=== PATIENT | male | born 1960 | race Caucasian/White ===

== ENCOUNTER 2016-08-20 14:36 | Emergency (ER) | payer SELFPAY ==
[2016-08-21] MEDS ORDERED: CIPR500T4 PO (17:41)
[2016-08-21] MEDS ORDERED: PHEN-640 PO (17:41)
[2016-08-21] MEDS ORDERED: ONDA8TAB13 PO (17:41)
[2016-08-21] MEDS ORDERED: OXYC-197 PO (17:41)
[2016-08-21] MEDS ORDERED: TAMS0.4C98 PO (17:41)
[2016-08-21] MEDS ORDERED: LEVOFLOXACIN 500 MG TAB (LEVAQUIN) ONE (18:14)
[2016-08-21] MEDS ORDERED: HYDROmorphone (DILAUDID) 2 MG/ML VIAL ONE (18:14)
[2016-08-21] MEDS ORDERED: NS IV 1000 ML 1,000 ML ONE (18:14)
[2016-08-21] MEDS ORDERED: ONDANSETRON 4 MG/2 ML (SDV) Z0FRAN ONE (18:14)
[2016-08-21] MEDS ORDERED: ALFUZOSIN HCL 10 MG TAB (UROXATRAL) PO ONE (18:15)
[2016-08-21] MEDS ORDERED: PHENAZOPYRIDINE 100 MG (PYRIDIUM) TABLET ONE (18:15)
[2016-08-21] MEDS ORDERED: HYDR-3812 PO (19:18)
[2016-08-21] MEDS ORDERED: FINA5TAB6 PO (19:18)
== END 2016-08-20 15:35 | disposition left against medical advice (07) ==
LOC: EDUNIT# 14:36 → ER 14:37
DX: R10.32 Left lower quadrant pain (principal); Z53.21 Procedure and treatment not carried out due to patient leaving prior to being seen by health care provider

== ENCOUNTER 2016-08-21 15:37 | Emergency (ER) | payer OTHER ==
[~2016-08-21] VITALS: Ht 182.9 cm; Wt 68.0 kg
[2016-08-21] MEDS ORDERED: NS IV 1000 ML 1,000 ML IV ONE ×2 (16:16→17:48)
[2016-08-21] MEDS ORDERED: KETOROLAC 30 MG/ML VIAL IVP STA (16:16)
[2016-08-21 16:21] LABS: BASOPHILS # (AUTO) 0.1 10^3/uL (0.0-0.1); BASOPHILS % (AUTO) 1 % (0-10); EOSINOPHILS # (AUTO) 0.2 10^3/uL (0.0-0.3); EOSINOPHILS % (AUTO) 2 % (0-10); LYMPHOCYTES # (AUTO) 3.9 X 10^3 (1.0-4.0); LYMPHOCYTES % (AUTO) 34 % (12-44); MEAN CORPUSCULAR HEMOGLOBIN 32 PG (25-34); MEAN CORPUSCULAR HGB CONC 35 G/DL (32-36); MEAN CORPUSCULAR VOLUME 91 FL (80-99); MONOCYTES # (AUTO) 1.3 X 10^3 (0.0-1.0); MONOCYTES % (AUTO) 11 % (0-12); NEUTROPHILS # (AUTO) 6.2 X 10^3 (1.8-7.8); NEUTROPHILS % (AUTO) 53 % (42-75); PLATELET COUNT 358 10^3/uL (130-400); RED BLOOD COUNT 4.79 10^6/uL (4.35-5.85); RED CELL DISTRIBUTION WIDTH 13.5 % (10.0-14.5); WHITE BLOOD COUNT 11.7 10^3/uL (4.3-11.0)
[2016-08-21] MEDS ORDERED: ONDANSETRON 4 MG/2 ML (SDV) Z0FRAN IVP ONE ×2 (16:30→18:00)
[2016-08-21 16:40] LABS: ALANINE AMINOTRANSFERASE 21 U/L (0-55); ALBUMIN 4.5 G/DL (3.2-4.5); ANION GAP 13 MMOL/L (5-14); ASPARTATE AMINO TRANSFERASE 16 U/L (5-34); BILIRUBIN,TOTAL 0.6 MG/DL (0.1-1.0); BLOOD UREA NITROGEN 15 MG/DL (7-18); BUN/CREATININE RATIO 14; CALCIUM 9.5 MG/DL (8.5-10.1); CARBON DIOXIDE 21 MMOL/L (21-32); CHLORIDE 105 MMOL/L (98-107); CREATININE SERUM 1.08 MG/DL (0.60-1.30); GFR ESTIMATED > 60; GLUCOSE 115 MG/DL (70-105); LIPASE 22 U/L (8-78); POTASSIUM 3.6 MMOL/L (3.6-5.0); SODIUM 139 MMOL/L (135-145); TOTAL PROTEIN 7.4 G/DL (6.4-8.2)
--- NOTE | 2016-08-21 17:14 | Diagnostic Imaging Report ---
INDICATION: Left side abdominal pain with nausea and vomiting for two days. FINDINGS: There is a small hiatal hernia. Asymmetric thickening of the GE junction cannot be excluded. Lung bases are clear. A 2 mm calculi is present in the left ureterovesical junction with mild to moderate left hydronephrosis and edema in the left kidney. No calculi are seen within the kidney, itself. Right kidney is normal. The liver, gallbladder, spleen, pancreas and adrenal glands are normal. There is a normal appearance of the appendix. There are a few diverticula without inflammation. Bilateral inguinal hernias are present. The left inguinal hernia contains a loop of bowel without inflammation or obstruction. The osseous structures demonstrate some degenerative changes of the lumbar spine. IMPRESSION: 1. There is a 2 mm obstructing calculus in the left ureterovesical junction with mild left-sided hydronephrosis and edema in the left kidney. 2. Bilateral inguinal hernias are present. The left lung contains a loop of bowel without obstruction or inflammation. 3. There is a small hiatal hernia. This area demonstrates some asymmetric thickening. This could be due to collapse of the hiatal hernia. A mass cannot be excluded, recommend elective endoscopy. Dictated by: Dictated on workstation # [id number]
--- NOTE | 2016-08-21 17:33 | ED GU-Male ---
General Chief Complaint: Abdominal/GI Problems Stated Complaint: L SIDE LOWER BACK AND ABD PAIN/CHILLS Nursing Triage Note: PT C/O LEFT FLANK PAIN STARTING YESTERDAY AFTERNOON. ALSO C/O N/V Source: patient, family Exam Limitations: no limitations History of Present Illness Time seen by provider: 17:33 Initial Comments 56-year-old male patient presents to the emergency department complains of left flank pain beginning yesterday. Does complain of nausea and vomiting. Denies fevers. Difficulty with urination today. Denies hematuria. Timing/Duration: yesterday, getting worse, intermittent Severity/Quality: aching, sharp Location: left flank Radiation: other (radiates into the left back) Activities at Onset: none Prior Genitourinary Problems: none Modifying Factors: Worsens With Palpation, Worsens With Urinating Allergies and Home Medications Allergies Coded Allergies: No Known Drug Allergies (Unverified , 08/21/16) Home Medications Ciprofloxacin HCl 500 Mg Tablet #14 500 MG PO BID Prescribed by: GEORGE SOTOMAYOR on 08/21/161740 Finasteride 5 Mg Tablet #10 5 MG PO DAILY Prescribed by: GEORGE SOTOMAYOR on 08/21/161917 Hydrocodone/Acetaminophen 1 Each Tablet #20 1 EACH PO Q4H PRN PRN PAIN Prescribed by: GEORGE SOTOMAYOR on 08/21/161917 Ondansetron 8 Mg Tab.rapdis #10 8 MG PO Q6H PRN PRN NAUSEA/VOMITING Prescribed by: GEORGE SOTOMAYOR on 08/21/161740 Phenazopyridine HCl 200 Mg Tablet #30 1 TAB PO Q8H PRN PRN PAIN Prescribed by: GEORGE SOTOMAYOR on 08/21/161740 Constitutional: No chills, No fever, No malaise Respiratory: No cough, No short of breath Cardiovascular: No chest pain, No palpitations, No syncope Gastrointestinal: abdominal pain (left flank pain)No constipation, No diarrhea , No hematemesis, loss of appetiteNo melena, nausea vomiting Genitourinary: see HPIdenies discharge, dysuriadenies frequency, flank paindenies hematuria, pain Musculoskeletal: see HPI back pain Skin: no symptoms reported Psychiatric/Neurological: No Symptoms Reported All Other Systemes Reviewed Negative Unless Noted: Yes (Negative excepted noted.) Past Ymbdcgg-Ppeoct-Byslub Hx Patient Social History Alcohol Use: Denies Use Recreational Drug Use: No Smoking Status: Never a Smoker Recent Foreign Travel: No Contact w/Someone Who Travel: No Recent Infectious Disease Expo: No Recent Hopitalizations: No Seasonal Allergies Seasonal Allergies: No Surgeries HX Surgeries: No Respiratory Hx Respiratory Disorders: No Cardiovascular Hx Cardiac Disorders: No Neurological Hx Neurological Disorders: No Reproductive System Hx Reproductive Disorders: No Genitourinary Hx Genitourinary Disorders: No Gastrointestinal Hx Gastrointestinal Disorders: No Musculoskeletal Hx Musculoskeletal Disorders: Yes Musculoskeletal Disorders: Chronic Back Pain Endocrine Hx Endocrine Disorders: No HEENT HX ENT Disorders: No Cancer Hx Cancer: No Psychosocial Hx Psychiatric Problems: No Integumentary HX Skin/Integumentary Disorder: No Blood Transfusions Hx Blood Disorders: No Reviewed Nursing Assessment Reviewed/Agree w Nursing PMH: Yes Family Medical History Significant Family History: No Pertinent Family Hx Physical Exam Vital Signs Vital Sign - Last 12Hours 08/21/16 08/21/16 15:48 19:51 Temp 95.7 Pulse 80 Resp 24 B/P 145/98 Pulse Ox 95 Capillary Refill : Less Than 3 Seconds General Appearance: WD/WN moderate distress HEENT: PERRL/EOMI pharynx normal Neck: supple normal inspection Cardiovascular: normal peripheral pulses regular rate, rhythm no edema no murmur Respiratory: lungs clear normal breath sounds no respiratory distress Gastrointestinal: normal bowel sounds soft no organomegalyNo distended, guarding (suprapubic, left lower quadrant, and left flank)No rebound, tenderness (suprapubic, left lower quadrant, and left flank) hernia (reducible bilateral inguinal hernias. Nontender.) Back: normal inspectionNo CVA tenderness (R), CVA tenderness (L) Extremities: no pedal edema normal capillary refill Neurologic/Psychiatric: alert oriented x 3 other (anxious) Skin: normal color warm/dry Progress/Results/Core Measures Results/Orders Lab Results Laboratory Tests Test 08/21/16 15:58 08/21/16 19:00 Range/Units Alanine Aminotransferase (ALT/SGPT) 21 0-55 U/L Albumin 4.5 3.2-4.5 G/DL Alkaline Phosphatase 62 40-136 U/L Anion Gap 13 5-14 MMOL/L Aspartate Amino Transf (AST/SGOT) 16 5-34 U/L BUN/Creatinine Ratio 14 Basophils # (Auto) 0.1 0.0-0.1 10^3/uL Basophils (%) (Auto) 1 0-10 % Blood Urea Nitrogen 15 7-18 MG/DL Calcium Level 9.5 8.5-10.1 MG/DL Carbon Dioxide Level 21 21-32 MMOL/L Chloride Level 105 98-107 MMOL/L Creatinine 1.08 0.60-1.30 MG/DL Eosinophils # (Auto) 0.2 0.0-0.3 10^3/uL Eosinophils (%) (Auto) 2 0-10 % Estimat Glomerular Filtration Rate > 60 Glucose Level 115 H 70-105 MG/DL Hematocrit 43 40-54 % Hemoglobin 15.2 13.3-17.7 G/DL Lipase 22 8-78 U/L Lymphocytes # (Auto) 3.9 1.0-4.0 X 10^3 Lymphocytes (%) (Auto) 34 12-44 % Mean Corpuscular Hemoglobin 32 25-34 PG Mean Corpuscular Hemoglobin Concent 35 32-36 G/DL Mean Corpuscular Volume 91 80-99 FL Mean Platelet Volume 10.0 7.4-10.4 FL Monocytes # (Auto) 1.3 H 0.0-1.0 X 10^3 Monocytes (%) (Auto) 11 0-12 % Neutrophils # (Auto) 6.2 1.8-7.8 X 10^3 Neutrophils (%) (Auto) 53 42-75 % Platelet Count 358 130-400 10^3/uL Potassium Level 3.6 3.6-5.0 MMOL/L Red Blood Count 4.79 4.35-5.85 10^6/uL Red Cell Distribution Width 13.5 10.0-14.5 % Sodium Level 139 135-145 MMOL/L Total Bilirubin 0.6 0.1-1.0 MG/DL Total Protein 7.4 6.4-8.2 G/DL White Blood Count 11.7 H 4.3-11.0 10^3/uL Urine Bacteria NONE /HPF Urine Bilirubin NEGATIVE NEGATIVE Urine Casts NONE /LPF Urine Clarity CLEAR Urine Color YELLOW Urine Crystals NONE /LPF Urine Culture Indicated NO Urine Glucose (UA) NEGATIVE NEGATIVE Urine Ketones 3+ H NEGATIVE Urine Leukocyte Esterase NEGATIVE NEGATIVE Urine Mucus SMALL H /LPF Urine Nitrite NEGATIVE NEGATIVE Urine Protein NEGATIVE NEGATIVE Urine RBC NONE /HPF Urine RBC (Auto) 3+ H NEGATIVE Urine Specific Wade 1.020 1.016-1.022 Urine Squamous Epithelial Cells 2-5 /HPF Urine Urobilinogen NORMAL NORMAL MG/DL Urine WBC 0-2 /HPF Urine pH 6 5-9 My Orders Orders-GEORGE SOTOMAYOR Ua Culture If Indicated (08/21/16 16:11) Saline Lock/Iv-Start (08/21/16 16:16) Cbc With Automated Diff (08/21/16 16:16) Comprehensive Metabolic Panel (08/21/16 16:16) Lipase (08/21/16 16:16) Ondansetron Injection (Zofran Injectio (08/21/16 16:30) Ketorolac Injection (Toradol Injection) (08/21/16 16:16) Ns Iv 1000 Ml (Sodium Chloride 0.9%) (08/21/16 16:16) Ct Abd/Pelvis Wo(Kidney Stone) (08/21/16 16:35) Abdomen/Kub 1view (08/21/16 17:43) Hydromorphone Injection (Dilaudid Inject (08/21/16 17:48) Phenazopyridine Tablet (Pyridium Tablet) (08/21/16 17:48) Ondansetron Injection (Zofran Injectio (08/21/16 18:00) Ns Iv 1000 Ml (Sodium Chloride 0.9%) (08/21/16 17:48) Alfuzosin Tablet (Uroxatral Tablet) (08/21/16 18:00) Levofloxacin Tablet (Levaquin Tablet) (08/21/16 18:00) Acetaminophen/Codeine Tablet (Tylenol W/ (08/21/16 19:45) Rx-Ondansetron Po (Rx-Zofran Po) (08/21/16 19:36) Rx-Acetaminophen/Codeine (Rx-Tylenol #3) (08/21/16 19:45) Medications Given in ED Current Medications Medications Dose Ordered Sig/Logan Route Start Time Stop Time Status Last Admin Dose Admin Alfuzosin HCl 10 mg ONCE ONCE PO 08/21/16 18:00 08/21/16 18:01 DC 08/21/16 18:20 10 MG Levofloxacin 500 mg ONCE ONCE PO 08/21/16 18:00 08/21/16 18:01 DC 08/21/16 18:20 500 MG Ondansetron HCl 4 mg 4 mg ONCE ONCE IVP 08/21/16 16:30 08/21/16 16:31 DC 08/21/16 16:22 4 MG Ondansetron HCl 4 mg 4 mg ONCE ONCE IVP 08/21/16 18:00 08/21/16 18:01 DC 08/21/16 18:18 4 MG Sodium Chloride 1,000 ml @ 0 mls/hr Q0M ONCE IV 08/21/16 16:16 08/21/16 16:17 DC 08/21/16 16:24 999 MLS/HR Sodium Chloride 1,000 ml @ 0 mls/hr Q0M ONCE IV 08/21/16 17:48 08/21/16 17:51 DC 08/21/16 18:18 999 MLS/HR Vital Signs/I&O Vital Sign - Last 12Hours 08/21/16 08/21/16 15:48 19:51 Temp 95.7 98.7 Pulse 80 88 Resp 24 18 B/P 145/98 Pulse Ox 95 Intake and Output 08/22/16 00:00 Intake Total 1000 ml Balance 1000 ml Blood Pressure Mean: 114 Diagnostic Imaging Diagonstic Imaging: CT Plain Films/CT/US/NM/MRI: abdomen, pelvis Comments FINDINGS: There is a small hiatal hernia. Asymmetric thickening of the GE junction cannot be excluded. Lung bases are clear. A 2 mm calculi is present in the left ureterovesical junction with mild to moderate left hydronephrosis and edema in the left kidney. No calculi are seen within the kidney, itself. Right kidney is normal. The liver, gallbladder, spleen, pancreas and adrenal glands are normal. There is a normal appearance of the appendix. There are a few diverticula without inflammation. Bilateral inguinal hernias are present. The left inguinal hernia contains a loop of bowel without inflammation or obstruction. The osseous structures demonstrate some degenerative changes of the lumbar spine. IMPRESSION: 1. There is a 2 mm obstructing calculus in the left ureterovesical junction with mild left-sided hydronephrosis and edema in the left kidney. 2. Bilateral inguinal hernias are present. The left lung contains a loop of bowel without obstruction or inflammation. 3. There is a small hiatal hernia. This area demonstrates some asymmetric thickening. This could be due to collapse of the hiatal hernia. A mass cannot be excluded, recommend elective endoscopy. Dictated by: Dictated on workstation # [id number] Dict: 08/21/16 1700 Trans: 08/21/16 1720 PJE [id number] Interpreted by: DORA BARRERA MD Electronically signed by: DORA BARRERA MD 08/21/16 1722 ADDENDUM REPORT Addendum/impression: In the impression it says "the left lung contains a loop of bowel", It should say "the left inguinal hernia contains a loop of bowel without inflammation or obstruction. Dictated by: Dictated on workstation # [id number] Reviewed: Reviewed by Me (radiology report reviewed by me) Diagonstic Imaging: Xray Plain Films/CT/US/NM/MRI: abdomen Comments FINDINGS: A supine view of the abdomen demonstrates normal bowel gas pattern. The previous kidney stone is too faint to be visualized on plain films. IMPRESSION: The previous 2 mm calculi is too small to be visualized on plain films. Dictated by: Dictated on workstation # [id number] Reviewed: Reviewed by Me (radiology report reviewed by me) Departure Communication Progress Notes Laboratory and diagnostic findings discussed with the patient. Patient reports improvement in symptoms with all medications and IV fluids given. Patient upon discharge shows abdomen to be nontender, soft, positive bowel sounds. No acute distress. Alert and oriented 3. Proceed with discharge to home. Patient states she would like to follow-up with Dr. Regalado as an outpatient for recheck. Patient call for appointment time. All return precautions were discussed with the patient as described in the discharge instructions of this report. Patient voices understanding and agrees with the treatment plan. Patient case discussed with Dr. Lan, he agrees with the plan of care. Impression Impression: Primary Impression: Ureterolithiasis Disposition: HOME, SELF-CARE Condition: Improved Departure-Patient Inst. Decision time for Depature: 17:36 Referrals: NO,LOCAL PHYSICIAN (PCP) Primary Care Physician REGIS RIVERA MD Patient Instructions: Kidney Stones (DC) Add. Discharge Instructions: All discharge instructions reviewed with patient and/or family. Voiced understanding. Medications as instructed. Ibuprofen 800 mg by mouth every 8 hours as needed for pain. Push fluids. Strain all urines. Follow-up with your family practitioner as an outpatient for recheck. Follow-up with Dr. Rivera as an outpatient for recheck. Repeat x-ray as an outpatient Monday or Monday. Return to the emergency department immediately for worsened pain, fever, vomiting, vomiting blood, blood in the urine, inability to urinate, fever , or any other concerns. Scripts Finasteride 5 Mg Tablet5 Mg PO DAILY #10 TAB Ref 0 Prov:GEORGE SOTOMAYOR 08/21/16 Hydrocodone/Acetaminophen (Hydrocodon -Acetaminophen 5-325)1 Each Tablet1 Each PO Q4H PRN PAIN #20 TAB Ref 0 Prov:GEORGE SOTOMAYOR 08/21/16 Phenazopyridine HCl (Pyridium)200 Mg Tablet1 Tab PO Q8H PRN PAIN #30 TAB Ref 0 Prov:GEORGE SOTOMAYOR 08/21/16 Ondansetron (Ondansetron Odt)8 Mg Tab.rapdis8 Mg PO Q6H PRN NAUSEA/VOMITING #10 TAB Ref 0 Prov:GEORGE SOTOMAYOR 08/21/16 Ciprofloxacin HCl 500 Mg [id number] Mg PO BID #14 TAB Ref 0 Prov:GEORGE SOTOMAYOR 08/21/16 Work/School Note: Work Release Form Date Seen in the Emergency Department: Aug 21, 2016 Return to Work: Aug 23, 2016 Restrictions: No Restrictions GEORGE SOTOMAYOR Aug 21, 2016 17:33
[2016-08-21] MEDS ORDERED: TAMS0.4C98 PO (17:41)
[2016-08-21] MEDS ORDERED: CIPR500T4 PO (17:41)
[2016-08-21] MEDS ORDERED: ONDA8TAB13 PO (17:41)
[2016-08-21] MEDS ORDERED: OXYC-197 PO (17:41)
[2016-08-21] MEDS ORDERED: PHEN-640 PO (17:41)
[2016-08-21] MEDS ORDERED: HYDROmorphone (DILAUDID) 2 MG/ML VIAL IVP STA (17:48)
[2016-08-21] MEDS ORDERED: PHENAZOPYRIDINE 100 MG (PYRIDIUM) TABLET PO STA (17:48)
[2016-08-21] MEDS ORDERED: LEVOFLOXACIN 500 MG TAB (LEVAQUIN) PO ONE (18:00)
[2016-08-21] MEDS ORDERED: ALFUZOSIN HCL 10 MG TAB (UROXATRAL) PO ONE (18:00)
--- NOTE | 2016-08-21 18:10 | Diagnostic Imaging Report ---
INDICATION: Followup CT scan for left-sided kidney stone. COMPARISON STUDY: CT scan from earlier today. FINDINGS: A supine view of the abdomen demonstrates normal bowel gas pattern. The previous kidney stone is too faint to be visualized on plain films. IMPRESSION: The previous 2 mm calculi is too small to be visualized on plain films. Dictated by: Dictated on workstation # [id number]
[2016-08-21 19:11] LABS: BILIRUBIN,URINE NEGATIVE (NEGATIVE); KETONES,URINE 3+ (NEGATIVE); LEUKOCYTE ESTERASE ,URINE NEGATIVE (NEGATIVE); NITRITE,URINE NEGATIVE (NEGATIVE); PH,URINE 6 (5-9); PROTEIN,URINE NEGATIVE (NEGATIVE); UROBILINOGEN,URINE NORMAL (NORMAL)
[2016-08-21] MEDS ORDERED: HYDR-3812 PO (19:18)
[2016-08-21] MEDS ORDERED: FINA5TAB6 PO (19:18)
[2016-08-21 19:27] LABS: WBC,URINE 0-2 /HPF
[2016-08-21] MEDS ORDERED: RX-ONDANSETRON 4 MG ODT (ZOFRAN) PPK #4 PO STA (19:36)
[2016-08-21] MEDS ORDERED: APAP 300 MG/CODEINE 30 MG (TYLENOL #3) TAB PO ONE (19:45)
[2016-08-21] MEDS ORDERED: RX-ACETAMINOPHEN/CODEINE TAB PPK #4 PO SCH (19:45)
[2016-08-21 19:51] VITALS: BP 135/88
== END 2016-08-21 19:50 | disposition home or self-care (01) ==
LOC: EDUNIT# 15:37 → ER 15:38
DX: N20.1 Calculus of ureter (principal); K40.20 Bilateral inguinal hernia, without obstruction or gangrene, not specified as recurrent; K44.9 Diaphragmatic hernia without obstruction or gangrene
CPT/HCPCS: 36415; 74000; 74176; 80053; 81000; 83690; 85025; 96361; 96374; 96375; 96376